=== PATIENT | male | born 1995 | race Two or more races ===

== ENCOUNTER 2020-03-11 15:03 | Emergency (ER) | payer OTHER ==
[2020-03-11] MEDS ORDERED: HYDROmorphone 1 MG/ML Syringe IVPUSH ONE (15:28)
--- NOTE | 2020-03-11 15:52 | CR ---
[id number] RAD/RAD Ankle Left 2V Exam: RAD Ankle Left 2V Indication:ANKLE PAIN AFTER FALL. Comparison: No prior imaging for comparison. Discussion/Impression: Unstable ankle mortise fracture. Fractures involve the distal fibular metaphysis and the medial malleolus. Talar dome is displaced laterally approximately 20 mm in relation to the tibial plafond. A 20 x 15 mm fragment of the medial malleolus remains near its anatomic position, displaced at least 18 mm lateral relation to the donor site. Distal fibular fracture is obliquely orientated with at least 6 mm of separation at the fracture site seen on lateral view. AP view demonstrates slight impaction and shortening at the fibular fracture site. Lateral view also demonstrates posterior displacement of the talar dome in relation to the tibia. This is difficult to accurately measure estimated at at least 15 mm. Wilfredo Okeefe MD 03/11/20 [id number] Thank you for allowing us to participate in the care of your patient.
[2020-03-11] MEDS: Ondansetron 4 MG/2 ML SDV IVPUSH ONE (15:55)
[2020-03-11] MEDS: HYDROmorphone 1 MG/ML Syringe IVPUSH ONE ×2 (15:57→16:50)
--- NOTE | 2020-03-11 16:13 | EDM.PDOC ---
ED HPI GENERAL MEDICAL PROBLEM - General Stated Complaint: ANKLE INJURY Time Seen by Provider: 03/11/20 15:31 Source of Information: Reports: Patient, Other (boss) History Limitations: Reports: No Limitations - History of Present Illness INITIAL COMMENTS - FREE TEXT/NARRATIVE: Patient presents with left ankle injury and severe pain after falling on the ice at work at around 1315 this afternoon. He describes what sounds like a forceful [id number]-oznhdkh injury as he landed with his foot and ankle underneath him. He denies hitting his head or any other injuries or LOC. He has only had water intake since an energy drink at 0700 this morning. Left Ankle Pain Score (Numeric/FACES): 10 - Related Data Allergies Allergy/AdvReac Type Severity Reaction Status Date / Time No Known Drug Allergies Allergy Cannot Verified 03/11/20 15:27 Remember Home Meds: Home Meds . [No Known Home Meds] 03/11/20 [History] Review of Systems - Review of Systems Review Of Systems: See Below Constitutional: Denies: Chills, Fever Eyes: Denies: Blurred Vision, Vision Change Ears: Denies: Dizziness, Bloody Discharge Nose: Denies: Bloody Discharge Mouth/Throat: Denies: Bleeding Respiratory: Denies: Shortness of Breath, Cough Cardiovascular: Denies: Chest Pain, Syncope GI/Abdominal: Denies: Abdominal Pain, Vomiting Musculoskeletal: Reports: Other (ankle). Denies: Neck Pain, Shoulder Pain, Arm Pain, Back Pain, Hand Pain Skin: Reports: Bruising (left ankle). Denies: Cyanosis, Jaundice, Mottled, Pallor, Diaphoresis Neurological: Denies: Confusion, Dizziness, Headache, Seizure, Syncope, Trouble Speaking Psychiatric: Denies: Confusion, Depression ED EXAM, GENERAL - Physical Exam Exam: See Below Exam Limited By: No Limitations General Appearance: Alert, WD/WN, No Apparent Distress Eye Exam: Bilateral Eye: EOMI, Normal Inspection, PERRL Ears: Normal External Exam, Hearing Grossly Normal Nose: Normal Inspection, No Blood Throat/Mouth: Normal Inspection, Normal Lips, Normal Voice, No Airway Compromise Head: Atraumatic, Normocephalic Neck: Normal Inspection, Supple, Non-Tender, Full Range of Motion. No: Tender Lateral, Tender Midline Respiratory/Chest: No Respiratory Distress, Lungs Clear, Normal Breath Sounds, No Accessory Muscle Use Cardiovascular: Normal Peripheral Pulses, Regular Rate, Rhythm, No Edema Peripheral Pulses: 2+: Posterior Tibial (L), Dorsalis Pedis (L) GI/Abdominal: No Distention Back Exam: Normal Inspection, Full Range of Motion Extremities: No Pedal Edema (but moderate swelling and ecchymosis of left ankle), Normal Capillary Refill, Joint Swelling, Other (left ankle appears mildly displaced laterally with significant ecchymosis anteriorly, medially and laterally. EHL/FHL are intact. CMS intact distally (before and after splint application). Other extremities have no evidence of injury with full AROM without pain.) Neurological: Alert, Oriented, CN II-XII Intact, Normal Cognition, No Motor/Sensory Deficits Psychiatric: Normal Affect, Normal Mood Skin Exam: Warm, Dry, Intact, Normal Color (except injury site), No Rash ED TRAUMA EXTREMITY PROCEDURES - Joint Reduction Left Ankle Sedation: Other (dilaudid IV) Pre-Procedure NV Status: Normal Post-Procedure NV Status: Normal Technique: Traction/Counter Traction (with direct lateral pressure) Number of Attempts: 1 Post-Reduction Imaging: Acceptably Reduced (no post-reduction xrays done; patient will be getting ORIF within a few hours. NV intact.) - Splinting Left Lower Extremity Splint Site: left ankle Pre-Procedure NV Status: Normal Post-Procedure NV Status: Normal Splint Material: Fiberglass Splint Design: Posterior Applied & Form Fitted By: Provider Provider Post-Splint Application NV Check: NV Status Normal Complications: No Course - Orders/Labs/Meds Meds: Medications Discontinued Medications Generic Name Dose Route Start Last Admin Trade Name Swapna PRN Reason Stop Dose Admin Hydromorphone HCl 0.5 mg 03/11/20 15:28 Dilaudid IVPUSH 03/11/20 15:29 ONETIME ONE Hydromorphone HCl 1 mg 03/11/20 15:49 Dilaudid IVPUSH 03/11/20 15:50 ONETIME ONE Ondansetron HCl 4 mg 03/11/20 15:49 03/11/20 15:55 Zofran IVPUSH 03/11/20 15:50 4 mg ONETIME ONE Administration - Re-Assessments/Exams Free Text/Narrative Re-Assessment/Exam: 03/11/20 16:16 Xrays show a bimalleolar fracture/dislocation of left ankle. CMS is intact. Pain is improved with the Dilaudid. Discussed findings and recommendations with patient and discussed with his mother (in [place] via phone). They want to go to [facility]. The [place] orthopedist looked at xrays and wants him to come through ER there. I discussed case with Dr. Swan, ER who accepted for transfer. He also asked if I could reduce the dislocation as much as tolerated. This was done while applying splint. Patient tolerated it okay after second dose of Dilaudid. Will send patient via ambulance. Departure - Departure Time of Disposition: 16:20 Disposition: DC/Tfer to Acute Hospital 02 Condition: Good Clinical Impression: Displaced bimalleolar fracture of left ankle Qualifiers: Encounter type: initial encounter Fracture type: closed Qualified Code(s): S82.842A - Displaced bimalleolar fracture of left lower leg, initial encounter for closed fracture - Discharge Information Referrals: Isabel Somers MD [Primary Care Provider] -
[2020-03-11] MEDS: HYDROmorphone 2 MG/ML SDV ONE (16:55)
[2020-03-11 17:05] VITALS: BP 138/85; PULSE 82
== END 2020-03-11 17:30 ==
LOC: KA.ED 15:03
DX: S82.842A Displaced bimalleolar fracture of left lower leg, initial encounter for closed fracture (principal); W18.30XA Fall on same level, unspecified, initial encounter; Y92.89 Other specified places as the place of occurrence of the external cause; Y99.0 Civilian activity done for income or pay
CPT/HCPCS: 27810; 73600-LT; 96374; 96375; 96376; 99284; 99284-25; J1170; J2405